=== PATIENT | male | born 1970 | race Caucasian/White ===

== ENCOUNTER 2019-06-16 12:19 | Day surgery (SDC) | payer BC ==
[~2019-06-16] VITALS: Ht 162.6 cm; Wt 79.4 kg
[~2019-06-16 12:19] MED LIST: LIPITOR40 MG PO; NAPROSYN500 MG PO
[2019-06-16 13:34] VITALS: BP 115/63
--- NOTE | 2019-06-17 09:50 | O ---
[address] [address] OPERATIVE REPORT Name: KIN JOHNSON Room #: DEP [facility]..#: [id number] Admission: 06/16/19 Attend Phys: Tc Stearns MD Discharge: 06/16/19 Date of : 68 Report #: [id number] THIS REPORT FOR: //name// CC: Tc Stearns Physician staff YANY AVERY DATE OF SERVICE: 06/16/2019 SERVICE: Orthopedics. FACILITY: [facility]. SURGEON: Tc Stearns MD FIRE SERVICES PLUMBER: Whitney Wright NP INDICATION FOR FIRE SERVICES PLUMBER: Extremity positioning, arthroscope management assistance with graft harvest and graft implantation. PREOPERATIVE DIAGNOSES: 1. Left knee pain. 2. 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 POSTOPERATIVE DIAGNOSES: 1. Left knee pain. 2. 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 3. Left knee medial plica. PROCEDURES: 1. Left knee arthroscopy with osteoarticular autologous transplantation to the medial femoral condyle. 2. Left knee arthroscopic medial plica resection. COMPLICATIONS: None. DRAINS: None. SPECIMENS: None. ANESTHESIA: General with regional. FINDINGS: 1. Intact menisci, lateral femoral condyle, trochlea, patella and cruciates. 2. Approximately 10 x 16 mm defect medial femoral condyle treated with 10 mm plug and 15 mm plug with good methodist of the articular surface and [address] [address] OPERATIVE REPORT Name: KIN JOHNSON Room #: [facility]#: [id number] Admission: 06/16/19 Attend Phys: Tc Stearns MD Discharge: 06/16/19 Date of : 68 Report #: [id number] contouring. 3. 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 HISTORY: The patient is a 49-year-old gentleman with a history of left knee pain that had failed conservative measures. He had treated with rest, activity modification, injection, physical therapy, oral medicines modalities all without sufficient relief. He had imaging with a CT condyle. He was indicated for surgical treatment. Risks, benefits, alternatives, and indication of surgery discussed with him in detail. Risks include but not limited to pain, bleeding, infection, injury to nerves or blood vessels, persistent pain despite surgical intervention, failure of any repairs, progression of any preexisting chondral damage, need for further to surgery as well as complications related to anesthesia such as stroke, heart attack, pulmonary complications, thromboembolic disease and . Despite these risks, he wishes to proceed. PROCEDURE IN DETAIL: After left lower extremity was correctly identified in preoperative holding area as the operative extremity, the patient underwent placement of single shot regional nerve block and then taken to the operating room where general anesthesia was induced without complication. He was padded appropriately and antibiotics were administered. Tourniquet was applied to the left leg. Left lower extremity was then prepped and draped in standard sterile fashion. Timeout procedure performed. Esmarch was used. Tourniquet inflated to 250 mmHg. Standard anterolateral viewing portal was established as well as anterior medial working portal. Diagnostic arthroscopy revealed the above findings. The knee looked very healthy other than the articular cartilage lesion that had some loose chondral fragments floating around the knee, which were resected with shaver. The edges were then repaired with a curette and shaver to a stable perimeter and then the defect on the medial femoral condyle was sized with the Arthrex sizing system. The medial plica was visualized and it was resected with a biter followed by the shaver. At this point, we used a 10 mm recipient harvester and removed the plug without difficulty. The knee was then placed into extension and a lateral parapatellar incision was made allowing access to the superior lateral portion of the trochlear ridge. The 10 mm graft was then harvested for autograft. An 11 mm allograft plug was then used to backfill the donor location. With the arthroscope in the anterolateral portal and second anteromedial portal established for a better trajectory to the lesion, the graft was then impacted into position to appropriate depth to allow appropriate contouring of the condyle. There was an additional area just anterior to this that needed grafting as well, so a 6 mm harvester was used to harvest the recipient location and this bone was later used to some degree to backfill. We initially took a [address] [address] OPERATIVE REPORT Name: KIN JOHNSON Room #: DEP [facility] [place] Tati#: [id number] Admission: 06/16/19 Attend Phys: Tc Stearns MD Discharge: 06/16/19 Date of : 68 Report #: [id number] mm plug for the recipient site and then the donor site was harvested with a 15 mm plug as well; however, an extraction of several millimeters of the plug was noted to fracture off, but was a good healthy plug otherwise. The second plug was taken slightly more distal and lateral to the original plug. This donor location was backfilled with allograft and autograft bone chips as well. Some of the autograft bone chunks were then placed into the defect to the 6 mm recipient site and impacted into position and the second autograft was then impacted into position after being appropriately sized to the depth after measuring medially, laterally, anteriorly and posteriorly similar to how we did with the 10 mm plug. This was gently impacted into position and fit nicely with the contouring relative to the medial femoral condyle and the 10 mm graft. The plugs were then palpated and probed and found to be stable. The arthroscopic effusion was drained, instruments were removed. The parapatellar arthrotomy was closed with 0 Vicryl suture in [id number] fashion. The skin layer was closed with 2-0 Vicryl followed by Monocryl. Sterile dressing was applied followed by compression stocking and a PolarCare device and then a knee immobilizer. He will be weightbearing as tolerated, range of motion as tolerated. We will discontinue the knee immobilizer when he is able to safely perform straight leg raise and bear weight. <ELECTRONICALLY SIGNED> By: Tc Stearns MD 06/17/19 0950 [id number] Tc Stearns MD /nt
== END 2019-06-16 18:30 | disposition home or self-care (01) ==
LOC: OR 12:19 → TBA 12:20 → OR 18:18
DX: M25.562 Pain in left knee (principal); M94.8X6 Other specified disorders of cartilage, lower leg; M67.52 Plica syndrome, left knee; E78.5 Hyperlipidemia, unspecified; Z98.890 Other specified postprocedural states; Z79.899 Other long term (current) drug therapy
CPT/HCPCS: 50010; 50405; 50954; 51038; 51320; 52001; 52282; 54170; 56524; 56527; 57103; 57180; 64039